=== PATIENT | male | born 1975 | race Two or more races ===

== ENCOUNTER 2023-12-17 22:42 | Emergency (ER) | payer BC ==
[~2023-12-17] VITALS: Ht 182.9 cm; Wt 113.4 kg
[2023-12-18] MEDS ORDERED: ZOLPIDEM TARTRATE 10 MG TABLET PO STA (02:12)
[2023-12-18] MEDS ORDERED: AMBIEN10 MG PO (04:56)
== END 2023-12-18 05:05 | disposition home or self-care (01) ==
LOC: ER 22:42
DX: R53.81 Other malaise (principal); G47.00 Insomnia, unspecified